=== PATIENT | female | born 1985 | race Caucasian/White ===

== ENCOUNTER → 2016-05-01 | Outpatient (CLI) | payer OTHER ==
[~2016-05-01] MED LIST: MOTR200T44 PO; TYLE167L PO; TYLE325T5 PO
== END ==
LOC: M LAB 17:18
PROVIDERS: ATTEND Physician Assistant
DX: R53.83 Other fatigue (principal)

== ENCOUNTER 2016-05-03 11:50 | Emergency (ER) | payer OTHER ==
--- NOTE | 2016-05-03 12:19 | EDDOCDS ---
Physician Documentation [facility] Name: Cecilia Brennan Age: 30 yrs Sex: Female : 1985 Arrival Date: 05/03/2016 Time: 11:50 Bed Triage 2 Private MD: NO PRIMARY PHYSICIAN, . Disposition: 05/03/16 12:10 Discharged to Home/Self Care. Impression: Acute nasopharyngitis [common cold]. - Condition is Stable. - Discharge Instructions: Cool Mist Vaporizers, Upper Respiratory Infection, Adult, Ilhw-xg-Byjn, Viral Infections, Cvbp-Uz-Yqmp. - Medication Reconciliation, Local Pharmacy Hours form. - [facility] up: [facility]; When: Call to arrange an appointment; Reason: Further diagnostic work-up, Recheck today's complaints, Continuance of care, To establish care. - Problem is new. - Symptoms are unchanged. Historical: - Allergies: No known drug Allergies; - Home Meds: 1. none - PMHx: none; - PSHx: Tubal ligation; - Social history: Smoking status: Patient uses tobacco products, light tobacco smoker. No barriers to communication noted, The patient speaks fluent Saudi Arabian. - Family history: Not pertinent. - : The pt / caregiver states he / she is not on anticoagulants. Home medication list is obtained from the patient. - Exposure Risk Screening:: None identified. 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 2 in. (157.48 cm); Pain 4/10; 11:52 Body Mass Index 27.44 (68.04 kg, 157.48 cm) elp MDM: 12:17 Financial registration complete. Signatures: Alejandrina Salmon RN RN Dieter Magana, Theodore Jaimes Davian Cleveland PA PA btw Fuller, Desiree,RN RN dsf MTDD
--- NOTE | 2016-05-03 12:20 | EDDOCDS ---
Nurse's Notes [facility] Name: Cecilia Brennan Age: 30 yrs Sex: Female : 1985 Arrival Date: 05/03/2016 Time: 11:50 Bed Triage 2 Private MD: NO PRIMARY PHYSICIAN, . Diagnosis: Acute nasopharyngitis [common cold] Presentation: 05/03 11:54 Presenting complaint: Patient states: sore throat and ears feeling plugged x 3 days. [facility] Risk factors: Stridor is not present. Drooling is not present. Shortness of breath is not present. Cellulitis is not present. Adult Sepsis Screening: The patient does not have new or worsening altered mentation. Patient's respiratory rate is less than 22. Systolic blood pressure is greater than 100. Patient has a qSOFA score of 0- Negative Sepsis Screen. Suicide/Homicide risk assessment- the patient denies having any suicidal and/or homicidal ideations and does not present with any other emotional, behavioral or mental health complaints. Status: Patient is not a media services director or dependent. Transition of care: patient was not received from another setting of care. 11:54 Acuity: RAMEZ Level 4 [facility] 11:54 Method Of Arrival: Walkin/Carried/Asstd [facility] Triage Assessment: 11:56 General: Appears in no apparent distress, Behavior is appropriate for age. Pain: [facility] Location: throat Pain currently is 4 out of 10 on a pain scale. Pt Declines HIV testing. Neurological: Level of Consciousness is awake, alert, Oriented to person, place, time. EENT: Reports pain when swallowing Pain is 4 out of 10 on a pain scale. Respiratory: Airway is patent Respiratory effort is even, unlabored, Respiratory pattern is regular, symmetrical. Derm: Skin is pink, warm & dry. 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 none - PMHx: none; - PSHx: Tubal ligation; - Social history: Smoking status: Patient uses tobacco products, light tobacco smoker. No barriers to communication noted, The patient speaks fluent Danish. - Family history: Not pertinent. - : The pt / caregiver states he / she is not on anticoagulants. Home medication list is obtained from the patient. - Exposure Risk Screening:: None identified. Screenin:18 Screening information is obtained from the patient. Fall risk: No risks identified. dsf Assistance ADL's: requires no assistance with activities of daily living. Abuse/DV Screen: The patient / caregiver reports he/she is: not in a situation that causes fear, pain or injury. Nutritional screening: No deficits noted. Advance Directives: Currently, there is no health care proxy. home support is adequate. Assessment: 12:18 General: Appears in no apparent distress, Behavior is appropriate for age, cooperative. dsf Awake, alert, oriented. Skin warm and dry. Moves all extremities. Respirations unlabored. The patient / caregiver is instructed regarding the plan of care and ED course. Physical assessment to be completed by PA/ED. Vital Signs: 11:52 BP 121 / 67; Pulse 88; Resp 18; Temp 99.1; Pulse Ox 99% ; Weight 68.04 kg; Height 5 ft. elp 2 in. (157.48 cm); Pain 4/10; 11:52 Body Mass Index 27.44 (68.04 kg, 157.48 cm) el Vitals: 11:52 Log In Time: May 03, 2016 at 11:50. [facility] Course: 11:51 Patient visited by Sruthi Ddod PCA. elp 11:51 Patient moved to Waiting el 11:52 NO PRIMARY PHYSICIAN, . is Private Physician. elp 11:53 Patient visited by Sruthi Dodd PCA. elp 11:53 Patient moved to Pre RCE elp 11:55 Triage Initiated [facility] 11:58 Patient moved to Triage 2 [facility] 11:59 Davian Cleveland PA [facility]. btw 11:59 Stephanie Ulrich MD is Attending Physician. btw 11:59 Patient visited by Davian Cleveland PA. btw 12:10 [facility] is Referral Physician. btw 12:18 Patient has correct armband on for positive identification. dsf 12:18 No IV's were initiated during this patient's visit. No procedures done that require dsf assistance. Order Results: There are currently no results for this order. Outcome: 12:10 Discharge ordered by Provider. btw 12:18 The following High Risk Discharge criteria are identified: None. Discharged to home dsf ambulatory. Condition: stable. Discharge instructions given to patient, Instructed on discharge instructions, follow up and referral plans. Demonstrated understanding of instructions, Pt was receptive of discharge instructions/ teaching. No special radiology studies were completed. 12:18 Discharge Assessment: Patient awake, alert and oriented x 3. No cognitive and/or dsf functional deficits noted. Patient verbalized understanding of disposition instructions. patient administered narcotics - no. The following High Risk Discharge criteria are identified: None. Discharged to home ambulatory. Property sent home with patient. 12:19 Patient left the ED. dsf Signatures: Alejandrina Salmon, RN RN Davian Wyatt PA PA btw Fuller, DesireeRN RN dsf Sruthi Dodd, OSEI CONFIGURATION SPECIALIST elp MTDD
--- NOTE | 2016-05-05 13:20 | EDDOCDS ---
Physician Documentation [facility] Name: Cecilia Brennan Age: 30 yrs Sex: Female : 1985 Arrival Date: 05/03/2016 Time: 11:50 Bed Triage 2 Private MD: NO PRIMARY PHYSICIAN, . Disposition: 05/03/16 12:10 Discharged to Home/Self Care. Impression: Acute nasopharyngitis [common cold]. - Condition is Stable. - Discharge Instructions: Cool Mist Vaporizers, Upper Respiratory Infection, Adult, Tbpi-yb-Hqlj, Viral Infections, Lgpi-Mu-Todk. - Medication Reconciliation, Local Pharmacy Hours form. - Follow up: [facility]; When: Call to arrange an appointment; Reason: Further diagnostic work-up, Recheck today's complaints, Continuance of care, To establish care. - Problem is new. - Symptoms are unchanged. Historical: - Allergies: No known drug Allergies; - Home Meds: 1. none - PMHx: none; - PSHx: Tubal ligation; - Social history: Smoking status: Patient uses tobacco products, light tobacco smoker. No barriers to communication noted, The patient speaks fluent Emirati. - Family history: Not pertinent. - : The pt / caregiver states he / she is not on anticoagulants. Home medication list is obtained from the patient. - Exposure Risk Screening:: None identified. 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 2 in. (157.48 cm); Pain 4/10; 11:52 Body Mass Index 27.44 (68.04 kg, 157.48 cm) elp MDM: 12:17 Financial registration complete. lg 12:54 [facility] Payment Agreement was scanned into [employer] and attached to record. lg 14:52 T-Sheet-- Draft Copy was scanned into [employer] and attached to record. gb Signatures: Alejandrina Salmon RN RN [facility] Lisette Clark, Reg Reg gb Dieter Cain, Reg Reg lg Davian Cleveland PA PA btw Fuller, DesireeRN RN dsf The chart was reviewed and I authenticate all verbal orders and agree with the evaluation and treatment provided.Attachments: 12:54 [facility] Payment Agreement lg 14:52 T-Sheet-- Draft Copy gb Chart Complete MTDD
--- NOTE | 2016-05-05 13:20 | EDDOCDS ---
Nurse's Notes [facility] Name: Cecilia Brennan Age: 30 yrs Sex: Female : 1985 Arrival Date: 05/03/2016 Time: 11:50 Bed Triage 2 Private MD: NO PRIMARY PHYSICIAN, . Diagnosis: Acute nasopharyngitis [common cold] Presentation: 05/03 11:54 Presenting complaint: Patient states: sore throat and ears feeling plugged x 3 days. [facility] Risk factors: Stridor is not present. Drooling is not present. Shortness of breath is not present. Cellulitis is not present. Adult Sepsis Screening: The patient does not have new or worsening altered mentation. Patient's respiratory rate is less than 22. Systolic blood pressure is greater than 100. Patient has a qSOFA score of 0- Negative Sepsis Screen. Suicide/Homicide risk assessment- the patient denies having any suicidal and/or homicidal ideations and does not present with any other emotional, behavioral or mental health complaints. 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 Transition of care: patient was not received from another setting of care. 11:54 Acuity: RAMEZ Level 4 [facility] 11:54 Method Of Arrival: Walkin/Carried/Asstd [facility] Triage Assessment: 11:56 General: Appears in no apparent distress, Behavior is appropriate for age. Pain: [facility] Location: throat Pain currently is 4 out of 10 on a pain scale. Pt Declines HIV testing. Neurological: Level of Consciousness is awake, alert, Oriented to person, place, time. EENT: Reports pain when swallowing Pain is 4 out of 10 on a pain scale. Respiratory: Airway is patent Respiratory effort is even, unlabored, Respiratory pattern is regular, symmetrical. Derm: Skin is pink, warm & dry. 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 none - PMHx: none; - PSHx: Tubal ligation; - Social history: Smoking status: Patient uses tobacco products, light tobacco smoker. No barriers to communication noted, The patient speaks fluent Estonian. - Family history: Not pertinent. - : The pt / caregiver states he / she is not on anticoagulants. Home medication list is obtained from the patient. - Exposure Risk Screening:: None identified. Screenin:18 Screening information is obtained from the patient. Fall risk: No risks identified. dsf Assistance ADL's: requires no assistance with activities of daily living. Abuse/DV Screen: The patient / caregiver reports he/she is: not in a situation that causes fear, pain or injury. Nutritional screening: No deficits noted. Advance Directives: Currently, there is no health care proxy. home support is adequate. Assessment: 12:18 General: Appears in no apparent distress, Behavior is appropriate for age, cooperative. dsf Awake, alert, oriented. Skin warm and dry. Moves all extremities. Respirations unlabored. The patient / caregiver is instructed regarding the plan of care and ED course. Physical assessment to be completed by PA/ED. Vital Signs: 11:52 BP 121 / 67; Pulse 88; Resp 18; Temp 99.1; Pulse Ox 99% ; Weight 68.04 kg; Height 5 ft. elp 2 in. (157.48 cm); Pain 4/10; 11:52 Body Mass Index 27.44 (68.04 kg, 157.48 cm) [facility] Vitals: 11:52 Log In Time: May 03, 2016 at 11:50. [facility] ED Course: 11:51 Patient visited by Sruthi Dodd PCA. elp 11:51 Patient moved to Waiting el 11:52 NO PRIMARY PHYSICIAN, . is Private Physician. elp 11:53 Patient visited by Sruthi Dodd PCA. elp 11:53 Patient moved to Pre RCE elp 11:55 Triage Initiated [facility] 11:58 Patient moved to Triage 2 [facility] 11:59 Davian Cleveland PA is PSYCHIATRICP. btw 11:59 Stephanie Ulrich MD is Attending Physician. btw 11:59 Patient visited by Davian Cleveland PA. btw 12:10 [facility] is Referral Physician. btw 12:18 Patient has correct armband on for positive identification. dsf 12:18 No IV's were initiated during this patient's visit. No procedures done that require dsf assistance. 12:54 Patient name changed from Cecilia\S\Johnny\S\Mika\S\ to Cecilia\S\L\S\Mika. EDMS 12:54 [facility] Payment Agreement was scanned into [employer] and attached to record. lg 14:52 T-Sheet-- Draft Copy was scanned into [employer] and attached to record. gb Order Results: There are currently no results for this order. Outcome: 12:10 Discharge ordered by Provider. btw 12:18 The following High Risk Discharge criteria are identified: None. Discharged to home dsf ambulatory. Condition: stable. Discharge instructions given to patient, Instructed on discharge instructions, follow up and referral plans. Demonstrated understanding of instructions, Pt was receptive of discharge instructions/ teaching. No special radiology studies were completed. 12:18 Discharge Assessment: Patient awake, alert and oriented x 3. No cognitive and/or dsf functional deficits noted. Patient verbalized understanding of disposition instructions. patient administered narcotics - no. The following High Risk Discharge criteria are identified: None. Discharged to home ambulatory. Property sent home with patient. 12:19 Patient left the ED. dsf Signatures: Dispatcher [employer] EDMS Alejandrina Salmon, RN RN [facility] Lisette Clark, Reg Reg gb Dieter Cain, Reg Reg lg Davian Cleveland PA PA btw Madelyn Villa,RN RN dsf Sruthi Dodd, OSEI POACHER OPERATOR elp Chart Complete JEYSON
--- NOTE | 2016-05-05 13:20 | EDDOCDS ---
Physician Documentation [facility] Name: eCcilia Brennan Age: 30 yrs Sex: Female : 1985 Arrival Date: 05/03/2016 Time: 11:50 Bed Triage 2 Private MD: NO PRIMARY PHYSICIAN, . Disposition: 05/03/16 12:10 Discharged to Home/Self Care. Impression: Acute nasopharyngitis [common cold]. - Condition is Stable. - Discharge Instructions: Cool Mist Vaporizers, Upper Respiratory Infection, Adult, Qcoi-bk-Ealy, Viral Infections, Dsff-Ot-Ldny. - Medication Reconciliation, Local Pharmacy Hours form. - Follow up: [facility]; When: Call to arrange an appointment; Reason: Further diagnostic work-up, Recheck today's complaints, Continuance of care, To establish care. - Problem is new. - Symptoms are unchanged. Historical: - Allergies: No known drug Allergies; - Home Meds: 1. none - PMHx: none; - PSHx: Tubal ligation; - Social history: Smoking status: Patient uses tobacco products, light tobacco smoker. No barriers to communication noted, The patient speaks fluent Beninese. - Family history: Not pertinent. - : The pt / caregiver states he / she is not on anticoagulants. Home medication list is obtained from the patient. - Exposure Risk Screening:: None identified. 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 2 in. (157.48 cm); Pain 4/10; 11:52 Body Mass Index 27.44 (68.04 kg, 157.48 cm) elp MDM: 12:17 Financial registration complete. lg 12:54 [facility] [place] Agreement was scanned into [employer] and attached to record. lg 14:52 T-Sheet-- Draft Copy was scanned into [employer] and attached to record. gb Signatures: Alejandrina Salmon RN RN [facility] Lisette Clark, Reg Reg gb Dieter Cain, Reg Reg lg Davian Cleveland PA PA btw Fuller, DesireeRN RN dsf The chart was reviewed and I authenticate all verbal orders and agree with the evaluation and treatment provided.Attachments: 12:54 [facility] [place] Agreement lg 14:52 T-Sheet-- Draft Copy gb Chart Complete MTDD
== END 2016-05-03 12:19 | disposition home or self-care (01) ==
LOC: M ED 11:50
DX: J06.9 Acute upper respiratory infection, unspecified (principal); F17.210 Nicotine dependence, cigarettes, uncomplicated

== ENCOUNTER 2016-12-28 17:56 | Emergency (ER) | payer OTHER ==
[~2016-12-28] VITALS: Ht 157.5 cm; Wt 63.6 kg
[2016-12-28] MEDS ORDERED: KETOROLAC 30 MG/ML VIAL (J1885) IV ONE (21:15)
[2016-12-28 21:57] LABS: BASO % 0.7 % (0.0-1.0); EOS # 0.2 K/mm3 (0.0-0.50); EOS % 2.4 % (0.0-3.0); LARGE UNSTAINED CELL # 0.1 K/mm3 (0.0-0.4); LARGE UNSTAINED CELL % 1.4 % (0.0-4.0); LYMPH # 1.3 K/mm3 (1.5-4.5); LYMPH % 21.1 % (24.0-44.0); MEAN CORPUSCULAR VOLUME 88.6 fl (80.0-96.0); MONO # 0.3 K/mm3 (0.0-0.8); MONO % 4.6 % (0.0-5.0); NEUTROPHILS # 4.5 K/mm3 (1.8-7.7); NEUTROPHILS % 69.9 % (36.0-66.0); PLATELET COUNT, AUTOMATED 339 k/mm3 (150-450); RED CELL DISTRIBUTION WIDTH 12.2 % (11.5-14.5); WHITE BLOOD COUNT 6.4 K/mm3 (4.0-10.0)
[2016-12-28] MEDS ORDERED: GASTROGRAFIN SOLUTION 30ML (Q9963) PO ONE ×2 (22:00→22:25)
[2016-12-28 22:07] LABS: ALBUMIN 4.4 GM/DL (3.2-5.2); ALBUMIN/GLOBULIN RATIO 1.52 (1.00-1.93); ALKALINE PHOSPHATASE 62 U/L (45-117); ALT/SGPT 16 U/L (12-78); AMYLASE 52 U/L (25-115); ANION GAP 4 MEQ/L (8-16); AST/SGOT 9 U/L (15-37); BILIRUBIN,DIRECT 0.1 MG/DL (0.0-0.2); BILIRUBIN,TOTAL 0.5 MG/DL (0.2-1.0); BLOOD UREA NITROGEN 8 MG/DL (7-18); CALCIUM LEVEL 9.8 MG/DL (8.5-10.1); CARBON DIOXIDE LEVEL 27 MEQ/L (21-32); CHLORIDE LEVEL 108 MEQ/L (98-107); GLOMERULAR FILTRATION RATE > 60.0 (>60); GLUCOSE, FASTING 89 MG/DL (70-105); POTASSIUM SERUM 4.1 MEQ/L (3.5-5.1); SODIUM LEVEL 139 MEQ/L (136-145); TOTAL PROTEIN 7.3 GM/DL (6.4-8.2)
[2016-12-28 22:08] LABS: YEAST LIKE CELL URINE AUTO SMALL
[2016-12-28] MEDS ORDERED: ISOVUE-370 76% 100ML VIAL (Q9967) As Ordered ONE (23:50)
[2016-12-29 00:49] VITALS: BP 115/61
--- NOTE | 2016-12-29 00:50 | REPUSA ---
CLINICAL HISTORY: Abdominal pain. TECHNIQUE: Multiple axial, sagittal and coronal CT images were obtained through the abdomen and pelvi s after administration of oral and intravenous contrast material. COMMENTS: Comparison is made to the prior exam on 09/08/2014. Mild diffuse thickening of the wall of the terminal ileum. The liver is of uniform attenuation without mass or defect. There is no intra or extrahepatic biliary ductal dilatation. The spleen is normal. The gallbladder is within normal limits. The pancreas is of normal contour and attenuation characteristics. There is no evidence of adrenal mass. Both kidneys demonstrate prompt and equal nephrograms. The kidneys are normal in size, shape and conf iguration. There is no evidence of renal or ureteral mass. No renal or ureteral calculi are identifie d. There is no hydroureter or hydronephrosis. No evidence for appendicitis. No evidence for small or large bowel obstruction. There is no evidence of abdominal ascites or lympha denopathy. There is no evidence of intrinsic or extrinsic bladder mass. There is no pelvic ascites or lymphadeno chapin. Images of the lung bases show no evidence of pleural or parenchymal mass. There are no pleural effusi ons. The bony structures are free of lytic or blastic lesions. Multilevel degenerative changes are seen in volving the thoracolumbar spine. Scattered calcifications are seen involving the aorta and major bran ches compatible with atherosclerosis. IMPRESSION: Mild diffuse thickening of the wall of the terminal ileum. Underdistention versus mild ileitis. This was not present on prior exam. Thank you for your kind referral of this patient.
[2016-12-29] MEDS ORDERED: CIPROFLOXACIN 500 MG TAB PO ONE (01:00)
[2016-12-29] MEDS ORDERED: CIPR-249 PO (01:03)
[2016-12-29] MEDS ORDERED: NORCOTAB PO (01:03)
[2016-12-29] MEDS ORDERED: ZOFR4TAB3 PO (01:03)
[2016-12-29] MEDS ORDERED: FLAG500T PO (01:03)
== END 2016-12-29 01:21 | disposition home or self-care (01) ==
LOC: M ED 17:56
DX: N39.0 Urinary tract infection, site not specified (principal); K52.9 Noninfective gastroenteritis and colitis, unspecified; R10.30 Lower abdominal pain, unspecified; F17.200 Nicotine dependence, unspecified, uncomplicated
CPT/HCPCS: 74177; 80048; 80076; 81001; 81025; 82150; 83605; 83690; 85025; 86140; 96374; 99284; J1885; Q9963; Q9967

== ENCOUNTER → 2017-04-11 | Outpatient (REF) | payer OTHER ==
[2017-04-11 18:08] LABS: CHLAMYDIA DNA AMPLIFICATION NEGATIVE (NEGATIVE); GC DNA AMPLIFICATION NEGATIVE (NEGATIVE)
== END ==
LOC: M LAB REF 16:29
DX: R30.0 Dysuria (principal)

== ENCOUNTER → 2017-05-01 | Outpatient (CLI) | payer OTHER ==
[2017-05-01 20:44] LABS: BASO # 0.1 10^3/uL (0.0-0.2); BASO % 0.9 % (0.0-1.0); EOS # 0.2 10^3/uL (0.0-0.50); EOS % 3.1 % (0.0-3.0); HEMATOCRIT 45.6 % (36.0-47.0); HEMOGLOBIN 15.1 g/dl (12.0-16.0); IMMATURE GRANULOCYTE % 0.3 % (0-0); LYMPH # 1.7 10^3/uL (1.5-4.5); LYMPH % 26.1 % (24.0-44.0); MEAN CORPUSCULAR HEMOGLOBIN 29.9 pg (27.0-33.0); MEAN CORPUSCULAR HGB CONC 33.1 g/dl (32.0-36.5); MEAN CORPUSCULAR VOLUME 90.3 fl (80.0-96.0); MONO # 0.6 10^3/uL (0.0-0.8); MONO % 8.6 % (0.0-5.0); PLATELET COUNT, AUTOMATED 349 10^3/uL (150-450); RED BLOOD COUNT 5.05 10^6/uL (4.00-5.40); RED CELL DISTRIBUTION WIDTH 12.1 % (11.5-14.5); WHITE BLOOD COUNT 6.5 10^3/uL (4.0-10.0)
[2017-05-01 21:02] LABS: ALBUMIN 4.4 GM/DL (3.2-5.2); ALBUMIN/GLOBULIN RATIO 1.52 (1.00-1.93); ALKALINE PHOSPHATASE 68 U/L (45-117); ALT/SGPT 19 U/L (12-78); AMYLASE 54 U/L (25-115); ANION GAP 4 MEQ/L (8-16); AST/SGOT 10 U/L (7-37); BILIRUBIN,TOTAL 0.3 MG/DL (0.2-1.0); BLOOD UREA NITROGEN 8 MG/DL (7-18); CALCIUM LEVEL 9.8 MG/DL (8.5-10.1); CARBON DIOXIDE LEVEL 30 MEQ/L (21-32); CHLORIDE LEVEL 106 MEQ/L (98-107); CREATININE FOR GFR 0.66 MG/DL (0.55-1.02); GLOMERULAR FILTRATION RATE > 60.0 (>60); GLUCOSE, FASTING 76 MG/DL (70-100); LIPASE 154 U/L (73-393); POTASSIUM SERUM 4.9 MEQ/L (3.5-5.1); SODIUM LEVEL 140 MEQ/L (136-145); TOTAL PROTEIN 7.3 GM/DL (6.4-8.2)
== END ==
LOC: M WUC 16:14
DX: R10.84 Generalized abdominal pain (principal); N39.0 Urinary tract infection, site not specified
CPT/HCPCS: 82150

== ENCOUNTER → 2017-05-04 | Outpatient (REF) | payer OTHER ==
[2017-05-04 19:40] LABS: INFLUENZA A AMPLIFICATION NEGATIVE (NEGATIVE); INFLUENZA B AMPLIFICATION NEGATIVE (NEGATIVE); RSV AMPLIFICATION NEGATIVE (NEGATIVE)
== END ==
LOC: M LAB REF 19:03
DX: J11.1 Influenza due to unidentified influenza virus with other respiratory manifestations (principal)
CPT/HCPCS: 87631

== ENCOUNTER 2017-07-29 07:51 | Emergency (ER) | payer OTHER ==
[2017-07-29] MEDS: NS 1,000 ML IV (08:24)
[2017-07-29] MEDS: ONDANSETRON 4MG/2ML VIAL (J2405) IV (08:24)
[2017-07-29] MEDS: KETOROLAC 30 MG/ML VIAL (J1885) IV (08:24)
[2017-07-29] MEDS: MORPHINE 4 MG/ML 1ML VIAL/SYRINGE (J2270) IV ×2 (08:30→09:30)
[2017-07-29 08:31] LABS: BASO # 0.1 10^3/uL (0.0-0.2); BASO % 1.3 % (0.0-1.0); EOS # 0.2 10^3/uL (0.0-0.50); EOS % 3.9 % (0.0-3.0); HEMATOCRIT 41.6 % (36.0-47.0); HEMOGLOBIN 14.4 g/dl (12.0-15.5); IMMATURE GRANULOCYTE % 0.5 % (0-3.0); LYMPH # 2.6 10^3/uL (1.5-4.5); LYMPH % 41.2 % (24.0-44.0); MEAN CORPUSCULAR HEMOGLOBIN 30.3 pg (27.0-33.0); MEAN CORPUSCULAR HGB CONC 34.6 g/dl (32.0-36.5); MEAN CORPUSCULAR VOLUME 87.4 fl (80.0-96.0); MONO # 0.6 10^3/uL (0.0-0.8); MONO % 9.5 % (0.0-5.0); NEUTROPHILS # 2.7 10^3/uL (1.8-7.7); NEUTROPHILS % 43.6 % (36.0-66.0); PLATELET COUNT, AUTOMATED 321 10^3/uL (150-450); RED BLOOD COUNT 4.76 10^6/uL (4.00-5.40); RED CELL DISTRIBUTION WIDTH 12.2 % (11.5-14.5); WHITE BLOOD COUNT 6.2 10^3/uL (4.0-10.0)
[2017-07-29 08:33] LABS: CONTROL LINE UCG INT CTR LINE PRESENT; URINE PREG TEST NEGATIVE (NEGATIVE)
[2017-07-29 08:47] LABS: INR 0.95; PROTHROMBIN TIME 12.7 SECONDS (12.4-14.5)
[2017-07-29 08:52] LABS: BILIRUBIN, URINE MANUAL NEGATIVE (NEGATIVE); BLOOD URINE MANUAL RFX POSITIVE (NEGATIVE); GLUCOSE, URINE (UA) MANUAL NEGATIVE (NEGATIVE); KETONE, URINE MANUAL NEGATIVE (NEGATIVE); MICROSCOPIC INDICATED? RFX YES (NO); NITRITE, URINE MANUAL RFX NEGATIVE (NEGATIVE); PROTEIN, URINE MANUAL REFLEX 1+ mg/dL (NEGATIVE); RBC, URINE 30-40 /hpf (0-3); UROBILINOGEN, URINE MANUAL NORMAL (NORMAL)
[2017-07-29 08:53] LABS: BACTERIA, URINE SMALL AMOUNT; CALCIUM OXALATE CRYSTALS,URINE MOD AMOUNT /hpf; HYALINE CAST, URINE NONE SEEN /lpf (0-1); MICROSCOPIC EXAM UNSPUN; SQUAMOUS EPITHELIAL CELL URINE SMALL AMOUNT /hpf (SMALL AMT)
[2017-07-29] MEDS ORDERED: ISOVUE-370 76% 100ML VIAL (Q9967) As Ordered (09:31)
[2017-07-29 09:34] LABS: ALBUMIN 4.1 GM/DL (3.2-5.2); ALBUMIN/GLOBULIN RATIO 1.24 (1.00-1.93); ALKALINE PHOSPHATASE 62 U/L (45-117); ALT/SGPT 20 U/L (12-78); AMYLASE 47 U/L (25-115); ANION GAP 6 MEQ/L (8-16); AST/SGOT 11 U/L (7-37); BILIRUBIN,DIRECT < 0.1 MG/DL (0.0-0.2); BILIRUBIN,TOTAL 0.4 MG/DL (0.2-1.0); BLOOD UREA NITROGEN 11 MG/DL (7-18); CALCIUM LEVEL 9.6 MG/DL (8.5-10.1); CARBON DIOXIDE LEVEL 24 MEQ/L (21-32); CHLORIDE LEVEL 113 MEQ/L (98-107); CREATININE FOR GFR 0.83 MG/DL (0.55-1.30); GLOMERULAR FILTRATION RATE > 60.0 (>60); GLUCOSE, FASTING 123 MG/DL (70-100); LIPASE 143 U/L (73-393); POTASSIUM SERUM 3.9 MEQ/L (3.5-5.1); SODIUM LEVEL 143 MEQ/L (136-145); TOTAL PROTEIN 7.4 GM/DL (6.4-8.2)
[2017-07-29] MEDS ORDERED: HYDROmorphone 2 MG TAB PO (09:45)
[2017-07-29] MEDS ORDERED: HYDROmorphone HCL 1 MG/ML SYRINGE (J1170) As Ordered (09:49)
[2017-07-29] MEDS: HYDROmorphone HCL 1 MG/ML SYRINGE (J1170) IV ×2 (09:58→10:00)
== END 2017-07-29 10:30 | disposition home or self-care (01) ==
LOC: M ED 07:51
DX: N39.0 Urinary tract infection, site not specified (principal); N20.0 Calculus of kidney; N13.30 Unspecified hydronephrosis; F17.200 Nicotine dependence, unspecified, uncomplicated
CPT/HCPCS: J2270

== ENCOUNTER 2017-08-02 18:56 | Emergency (ER) | payer OTHER ==
[2017-08-02] MEDS: NS 1,000 ML IV (20:45)
[2017-08-02] MEDS ORDERED: diphenhydrAMINE INJ 50MG/ML VIAL (J1200) IV (21:00)
[2017-08-02] MEDS: KETOROLAC 30 MG/ML VIAL (J1885) IV (21:07)
[2017-08-02] MEDS: ONDANSETRON 4MG/2ML VIAL (J2405) IV (21:07)
[2017-08-02 21:16] LABS: BASO # 0.1 10^3/uL (0.0-0.2); EOS # 0.2 10^3/uL (0.0-0.50); EOS % 3.1 % (0.0-3.0); HEMATOCRIT 41.7 % (36.0-47.0); HEMOGLOBIN 14.5 g/dl (12.0-15.5); IMMATURE GRANULOCYTE % 0.3 % (0-3.0); LYMPH # 1.5 10^3/uL (1.5-4.5); LYMPH % 20.9 % (24.0-44.0); MEAN CORPUSCULAR HEMOGLOBIN 30.5 pg (27.0-33.0); MEAN CORPUSCULAR HGB CONC 34.8 g/dl (32.0-36.5); MEAN CORPUSCULAR VOLUME 87.8 fl (80.0-96.0); MONO # 0.5 10^3/uL (0.0-0.8); MONO % 7.1 % (0.0-5.0); NEUTROPHILS % 67.6 % (36.0-66.0); PLATELET COUNT, AUTOMATED 322 10^3/uL (150-450); RED BLOOD COUNT 4.75 10^6/uL (4.00-5.40); RED CELL DISTRIBUTION WIDTH 12.1 % (11.5-14.5); WHITE BLOOD COUNT 7.3 10^3/uL (4.0-10.0)
[2017-08-02 21:22] LABS: AMORPHOUS SEDIMENT SMALL (NEGATIVE); APPEARANCE, URINE HAZY (CLEAR); BACTERIA, URINE AUTO NEGATIVE (NEGATIVE); BILIRUBIN, URINE AUTO NEGATIVE (NEGATIVE); BLOOD, URINE BLOOD NEGATIVE (NEGATIVE); COLOR, URINE YELLOW (YELLOW); GLUCOSE, URINE (UA) AUTO NEGATIVE (NEGATIVE); KETONE, URINE AUTO NEGATIVE (NEGATIVE); LEUKOCYTE ESTERASE, URINE AUTO 2+ (NEGATIVE); MUCUS, URINE SMALL (NEGATIVE); NITRITE, URINE AUTO NEGATIVE (NEGATIVE); PROTEIN, URINE AUTO NEGATIVE (NEGATIVE); RBC, URINE AUTO 4 /HPF (0-3); SPECIFIC GRAVITY URINE AUTO 1.006 (1.002-1.035); SQUAMOUS EPITHELIAL CELL UR AU 8 /HPF (0-6); UROBILINOGEN, URINE AUTO 0.2 mg/dL (0.0-2.0); WBC, URINE AUTO 6 /HPF (0-3)
[2017-08-02 21:35] LABS: ALBUMIN 4.4 GM/DL (3.2-5.2); ALBUMIN/GLOBULIN RATIO 1.33 (1.00-1.93); ALKALINE PHOSPHATASE 58 U/L (45-117); ALT/SGPT 14 U/L (12-78); ANION GAP 4 MEQ/L (8-16); AST/SGOT 10 U/L (7-37); BILIRUBIN,DIRECT < 0.1 MG/DL (0.0-0.2); BILIRUBIN,TOTAL 0.4 MG/DL (0.2-1.0); BLOOD UREA NITROGEN 8 MG/DL (7-18); CALCIUM LEVEL 9.6 MG/DL (8.5-10.1); CARBON DIOXIDE LEVEL 27 MEQ/L (21-32); CHLORIDE LEVEL 108 MEQ/L (98-107); CREATININE FOR GFR 0.91 MG/DL (0.55-1.30); GLOMERULAR FILTRATION RATE > 60.0 (>60); GLUCOSE, FASTING 81 MG/DL (70-100); POTASSIUM SERUM 3.9 MEQ/L (3.5-5.1); SODIUM LEVEL 139 MEQ/L (136-145); TOTAL PROTEIN 7.7 GM/DL (6.4-8.2)
[2017-08-02 21:41] LABS: LACTIC ACID SEPSIS PROTOCOL 0.7 MMOL/L (0.4-2.0)
[2017-08-02] MEDS: CIPROFLOXACIN 500 MG TAB PO (22:46)
== END 2017-08-02 22:48 | disposition home or self-care (01) ==
LOC: M ED 18:56
DX: N39.0 Urinary tract infection, site not specified (principal); N21.0 Calculus in bladder; N13.30 Unspecified hydronephrosis; F17.210 Nicotine dependence, cigarettes, uncomplicated; Z79.2 Long term (current) use of antibiotics; Z87.442 Personal history of urinary calculi
CPT/HCPCS: J2405

== ENCOUNTER → 2018-02-07 | Outpatient (REF) | payer OTHER | LOC: M LAB REF 12:14 | DX: J01.90 Acute sinusitis, unspecified (principal); R30.0 Dysuria ==

== ENCOUNTER → 2018-07-31 | Outpatient (REF) | payer OTHER ==
[~2018-07-31] MED LIST changes: +ACET160S3 PO; +AMOX500C PO; +BACT800T5 PO; +CIPR-249 PO; +FLAG500T PO; +FLOM0.4C39 PO; +HYDR-3715 PO; +MAGICMW SSP; +PERC5TAB12 PO; +ZOFR4TAB14 PO
== END ==
LOC: M WUC 09:06
PROVIDERS: ATTEND Physician Assistant
DX: J02.9 Acute pharyngitis, unspecified (principal)

== ENCOUNTER 2018-08-04 11:14 | Emergency (ER) | payer OTHER ==
[~2018-08-04] VITALS: Ht 157.5 cm; Wt 66.4 kg
[~2018-08-04 11:14] MED LIST changes: -ACET160S3 PO; -AMOX500C PO; -MAGICMW SSP
[2018-08-04] MEDS ORDERED: ACET160S3 PO (11:21)
[2018-08-04] MEDS ORDERED: LIDOCAINE 1% SDV 5 ML VIAL DILUENT ONE (12:00)
[2018-08-04] MEDS ORDERED: cefTRIAXone SOD 1 GM VIAL (J0696) IM ONE (12:00)
[2018-08-04] MEDS ORDERED: MAGICMW SSP (12:29)
[2018-08-04] MEDS ORDERED: AMOX500C PO (12:29)
[2018-08-04 12:40] VITALS: BP 117/68
[2018-08-04] MEDS ORDERED: IBUPROFEN 800 MG TAB PO ONE (12:45)
== END 2018-08-04 12:43 | disposition home or self-care (01) ==
LOC: M ED 11:14
DX: J02.0 Streptococcal pharyngitis (principal); F17.210 Nicotine dependence, cigarettes, uncomplicated; Z87.442 Personal history of urinary calculi
CPT/HCPCS: 87880; 96372; 99284; J0696

== ENCOUNTER 2019-01-13 13:44 | Emergency (ER) | payer OTHER ==
[~2019-01-13] VITALS: Ht 157.5 cm; Wt 63.6 kg
[~2019-01-13 13:44] MED LIST changes: +ACET160S3 PO; +AMOX500C PO; +MAGICMW SSP
[2019-01-13 13:45] VITALS: BP 132/74
[2019-01-13 14:21] LABS: BASO # 0.1 10^3/uL (0.0-0.2); BASO % 0.9 % (0.0-1.0); EOS # 0.3 10^3/uL (0.0-0.5); EOS % 3.2 % (0.0-3.0); HEMATOCRIT 46.2 % (36.0-47.0); HEMOGLOBIN 15.5 g/dl (12.0-15.5); LYMPH # 1.8 10^3/uL (1.5-5.0); LYMPH % 19.5 % (24.0-44.0); MEAN CORPUSCULAR HEMOGLOBIN 30.6 pg (27.0-33.0); MEAN CORPUSCULAR HGB CONC 33.5 g/dl (32.0-36.5); MEAN CORPUSCULAR VOLUME 91.1 fl (80.0-96.0); MONO # 0.5 10^3/uL (0.0-0.8); MONO % 5.1 % (0.0-5.0); NEUTROPHILS # 6.5 10^3/uL (1.5-8.5); PLATELET COUNT, AUTOMATED 367 10^3/uL (150-450); RED BLOOD COUNT 5.07 10^6/uL (4.00-5.40); WHITE BLOOD COUNT 9.2 10^3/uL (4.0-10.0)
[2019-01-13 14:54] LABS: AMORPHOUS SEDIMENT MODERATE (NEGATIVE); APPEARANCE, URINE TURBID (CLEAR); BACTERIA, URINE AUTO 1+ (NEGATIVE); BILIRUBIN, URINE AUTO NEGATIVE (NEGATIVE); BLOOD, URINE BLOOD NEGATIVE (NEGATIVE); COLOR, URINE YELLOW (YELLOW); GLUCOSE, URINE (UA) AUTO NEGATIVE (NEGATIVE); KETONE, URINE AUTO NEGATIVE (NEGATIVE); LEUKOCYTE ESTERASE, URINE AUTO 3+ (NEGATIVE); NITRITE, URINE AUTO NEGATIVE (NEGATIVE); PROTEIN, URINE AUTO NEGATIVE (NEGATIVE); RBC, URINE AUTO 0 /HPF (0-3); SQUAMOUS EPITHELIAL CELL UR AU 16 /HPF (0-6); UROBILINOGEN, URINE AUTO 0.2 mg/dL (0.0-2.0); WBC, URINE AUTO 83 /HPF (0-3)
[2019-01-13 15:03] LABS: ALBUMIN 4.2 GM/DL (3.2-5.2); ALT/SGPT 27 U/L (12-78); BILIRUBIN,DIRECT 0.1 MG/DL (0.0-0.2); BILIRUBIN,TOTAL 0.4 MG/DL (0.2-1.0); BLOOD UREA NITROGEN 7 MG/DL (7-18); CALCIUM LEVEL 10.4 MG/DL (8.5-10.1); CARBON DIOXIDE LEVEL 29 MEQ/L (21-32); CHLORIDE LEVEL 105 MEQ/L (98-107); CREATININE FOR GFR 0.79 MG/DL (0.55-1.30); GLOMERULAR FILTRATION RATE > 60.0 (>60); GLUCOSE, FASTING 107 MG/DL (70-100); POTASSIUM SERUM 4.2 MEQ/L (3.5-5.1); SODIUM LEVEL 140 MEQ/L (136-145); THYROID STIMULATING HORMONE 0.444 uIU/ML (0.358-3.740); TOTAL PROTEIN 7.3 GM/DL (6.4-8.2)
[2019-01-13] MEDS ORDERED: PRED20TA PO (15:07)
[2019-01-13] MEDS ORDERED: CLAR10CA3 PO (15:07)
== END 2019-01-13 15:12 | disposition home or self-care (01) ==
LOC: M ED 13:44
DX: L29.9 Pruritus, unspecified (principal); F17.200 Nicotine dependence, unspecified, uncomplicated

== ENCOUNTER 2019-10-04 11:33 | Emergency (ER) | payer OTHER ==
[~2019-10-04] VITALS: Ht 157.5 cm; Wt 63.4 kg
[~2019-10-04 11:33] MED LIST changes: +CLAR10CA3 PO; +PRED20TA PO
[2019-10-04 12:38] LABS: BASO # 0.1 10^3/uL (0.0-0.2); BASO % 0.8 % (0.0-1.0); EOS # 0.1 10^3/uL (0.0-0.5); EOS % 0.9 % (0.0-3.0); HEMATOCRIT 46.9 % (36.0-47.0); HEMOGLOBIN 15.7 g/dl (12.0-15.5); LYMPH % 12.9 % (24.0-44.0); MEAN CORPUSCULAR HEMOGLOBIN 29.9 pg (27.0-33.0); MEAN CORPUSCULAR HGB CONC 33.5 g/dl (32.0-36.5); MEAN CORPUSCULAR VOLUME 89.3 fl (80.0-96.0); MONO # 0.5 10^3/uL (0.0-0.8); MONO % 6.6 % (0.0-5.0); NEUTROPHILS # 5.8 10^3/uL (1.5-8.5); NEUTROPHILS % 78.4 % (36.0-66.0); PLATELET COUNT, AUTOMATED 358 10^3/uL (150-450); RED BLOOD COUNT 5.25 10^6/uL (4.00-5.40); WHITE BLOOD COUNT 7.4 10^3/uL (4.0-10.0)
[2019-10-04 13:29] LABS: ALBUMIN 4.4 GM/DL (3.2-5.2); BILIRUBIN,DIRECT 0.2 MG/DL (0.0-0.2); BILIRUBIN,TOTAL 0.6 MG/DL (0.2-1.0); TOTAL PROTEIN 7.6 GM/DL (6.4-8.2)
[2019-10-04 14:14] LABS: CHLAMYDIA DNA AMPLIFICATION NEGATIVE (NEGATIVE); GC DNA AMPLIFICATION NEGATIVE (NEGATIVE)
--- NOTE | 2019-10-04 14:21 | REP ---
Clinical: Menorrhagia. Technique: Transabdominal pelvic ultrasound followed by transvaginal examination for better evaluation of the endometrium and adnexa with color Doppler evaluation of the ovaries. Findings: Bladder is empty Normal anteverted uterus measures 7.5 x 4.7 x 4.9 cm . The endometrial complex measures 11.0 mm thickness. No discrete uterine or endometrial abnormalities are appreciated. Bilateral ovaries are normal in appearance and vascularity without evidence for torsion. Right ovary measures 3.5 x 2.1 x 1.7 cm and includes 1.6 x 1.8 x 2.4 cm dominant follicle ; R I = 0.41 . Left ovary measures 2.9 x 2.0 x 2.9 cm ; R I = 0.49 . Trace pelvic free fluid. No adnexal mass lesion. . Impression: 1. Normal pelvic ultrasound. Dominant follicle in the right ovary. Electronically Signed by Rao Guerra MD 10/04/2019 02:13 P
[2019-10-04] MEDS ORDERED: CIPR-249 PO (14:26)
[2019-10-04] MEDS ORDERED: ONDA4TAB6 PO (14:26)
[2019-10-04 14:31] VITALS: BP 121/67
== END 2019-10-04 14:41 | disposition home or self-care (01) ==
LOC: M ED 11:33
DX: N39.0 Urinary tract infection, site not specified (principal); N83.201 Unspecified ovarian cyst, right side; F17.200 Nicotine dependence, unspecified, uncomplicated; Z87.442 Personal history of urinary calculi; Z88.8 Allergy status to other drugs, medicaments and biological substances

== ENCOUNTER 2019-10-05 22:02 | Emergency (ER) | payer OTHER ==
[~2019-10-05] VITALS: Ht 157.5 cm; Wt 63.6 kg
[~2019-10-05 22:02] MED LIST changes: +ONDA4TAB6 PO
[2019-10-05] MEDS ORDERED: METOCLOPRAMIDE INJ 10MG/2ML VIAL (J2765 PER 1) IV ONE (23:15)
[2019-10-05] MEDS ORDERED: NS 1,000 ML IV ONE (23:15)
[2019-10-05 23:22] LABS: BASO # 0.1 10^3/uL (0.0-0.2); BASO % 0.8 % (0.0-1.0); EOS # 0.1 10^3/uL (0.0-0.5); EOS % 0.9 % (0.0-3.0); HEMATOCRIT 43.4 % (36.0-47.0); HEMOGLOBIN 14.8 g/dl (12.0-15.5); LYMPH # 1.4 10^3/uL (1.5-5.0); LYMPH % 17.7 % (24.0-44.0); MEAN CORPUSCULAR HEMOGLOBIN 30.5 pg (27.0-33.0); MEAN CORPUSCULAR HGB CONC 34.1 g/dl (32.0-36.5); MEAN CORPUSCULAR VOLUME 89.5 fl (80.0-96.0); MONO # 0.6 10^3/uL (0.0-0.8); MONO % 7.5 % (0.0-5.0); NEUTROPHILS # 5.6 10^3/uL (1.5-8.5); NEUTROPHILS % 72.6 % (36.0-66.0); PLATELET COUNT, AUTOMATED 332 10^3/uL (150-450); RED BLOOD COUNT 4.85 10^6/uL (4.00-5.40); WHITE BLOOD COUNT 7.8 10^3/uL (4.0-10.0)
[2019-10-05] MEDS: KETOROLAC 30 MG/ML 1ML VIAL IV ONE ×2 (23:32→23:35)
--- NOTE | 2019-10-05 23:43 | REPVR ---
PROCEDURE INFORMATION: Exam: CT Abdomen And Pelvis Without Contrast Exam date and time: 10/05/2019 11:03 PM Age: 34 years old Clinical indication: Abdominal pain; Flank; Right; Additional info: R flank pain TECHNIQUE: Imaging protocol: Computed tomography of the abdomen and pelvis without contrast. Axial, coronal and sagittal reformatted images were created and reviewed. Radiation optimization: All CT scans at this facility use at least one of these dose optimization techniques: automated exposure control; mA and/or kV adjustment per patient size (includes targeted exams where dose is matched to clinical indication); or iterative reconstruction. COMPARISON: CT ABD PELVIS W/O CONTRAST 08/02/2017 9:21 PM FINDINGS: Liver: Unremarkable. Gallbladder and bile ducts: No radiodense gallstones. No biliary ductal dilatation. Pancreas: Unremarkable. Spleen: Unremarkable. Adrenals: Unremarkable. Kidneys and ureters: Nonobstructing left renal calculi. No hydronephrosis. Stomach and bowel: No bowel wall thickening. No obstruction. No pneumatosis. Appendix: Intraluminal appendicoliths without CT evidence of acute appendicitis. Intraperitoneal space: Trace nonspecific free pelvic fluid, likely physiologic. No organized fluid collection. No free air. Vasculature: Unremarkable. No aneurysm. Lymph nodes: No pathologically enlarged lymph nodes. Bladder: Unremarkable. Reproductive: Unremarkable. Bones/joints: No acute osseous abnormality. Mild degenerative changes. Soft tissues: Unremarkable. IMPRESSION: 1. Limited noncontrast examination without CT evidence of acute intra-abdominal or pelvic pathology. 2. Additional findings, as above. Electronically signed by: Sabas Quiroga On 10/05/2019 23:42:45 PM
[2019-10-05 23:51] LABS: ALBUMIN 4.3 GM/DL (3.2-5.2); BILIRUBIN,DIRECT 0.1 MG/DL (0.0-0.2); BILIRUBIN,TOTAL 0.5 MG/DL (0.2-1.0); TOTAL PROTEIN 7.4 GM/DL (6.4-8.2)
[2019-10-06] MEDS ORDERED: REGL10TA6 PO (01:01)
[2019-10-06 01:12] VITALS: BP 120/61
== END 2019-10-06 01:22 | disposition home or self-care (01) ==
LOC: M ED 22:02
DX: R10.9 Unspecified abdominal pain (principal); R11.2 Nausea with vomiting, unspecified; F17.200 Nicotine dependence, unspecified, uncomplicated; Z79.899 Other long term (current) drug therapy
CPT/HCPCS: 74176; 80047; 80076; 81001; 83690; 85025; 87086; 96361; 96374; 99284; J2765

== ENCOUNTER 2019-10-14 15:16 | Emergency (ER) | payer OTHER ==
[~2019-10-14] VITALS: Ht 157.5 cm; Wt 65.7 kg
[~2019-10-14 15:16] MED LIST changes: +REGL10TA6 PO
[2019-10-14 16:08] LABS: BASO % 0.9 % (0.0-1.0); EOS % 2.1 % (0.0-3.0); HEMATOCRIT 44.1 % (36.0-47.0); HEMOGLOBIN 15.3 g/dl (12.0-15.5); LYMPH # 1.2 10^3/uL (1.5-5.0); LYMPH % 20.6 % (24.0-44.0); MEAN CORPUSCULAR HEMOGLOBIN 30.4 pg (27.0-33.0); MEAN CORPUSCULAR HGB CONC 34.7 g/dl (32.0-36.5); MEAN CORPUSCULAR VOLUME 87.7 fl (80.0-96.0); MONO % 8.9 % (0.0-5.0); NEUTROPHILS # 3.8 10^3/uL (1.5-8.5); PLATELET COUNT, AUTOMATED 332 10^3/uL (150-450); RED BLOOD COUNT 5.03 10^6/uL (4.00-5.40); WHITE BLOOD COUNT 5.7 10^3/uL (4.0-10.0)
[2019-10-14 16:09] LABS: BASO # 0.1 10^3/uL (0.0-0.2); EOS # 0.1 10^3/uL (0.0-0.5); MONO # 0.5 10^3/uL (0.0-0.8)
[2019-10-14 16:31] LABS: ALBUMIN 4.4 GM/DL (3.2-5.2); BILIRUBIN,DIRECT 0.1 MG/DL (0.0-0.2); BILIRUBIN,TOTAL 0.4 MG/DL (0.2-1.0); TOTAL PROTEIN 7.4 GM/DL (6.4-8.2)
--- NOTE | 2019-10-14 18:00 | REPVR ---
PROCEDURE INFORMATION: Exam: US Abdomen, Limited; Right Upper Quadrant Exam date and time: 10/14/2019 5:32 PM Age: 34 years old Clinical indication: Abdominal pain; Epigastric; Additional info: Ruq pain TECHNIQUE: Imaging protocol: US abdomen. Real time ultrasound with image documentation. Limited exam focused on the right upper quadrant. COMPARISON: CT ABD PELVIS W/O CONTRAST 10/05/2019 11:18 PM FINDINGS: Liver: Liver is homogeneous in echotexture, with no focal lesion. Gallbladder: Gallbladder is anechoic. No stone, mural edema or pericholecystic fluid. Gallbladder wall measures less than 2 mm in thickness Common bile duct: Common bile duct measures 4 mm in diameter. Pancreas: Pancreas is sonographically normal. Right kidney: Right kidney measures 10.1 cm in long axis. Right kidney appears normal. Intraperitoneal space: No free fluid. IMPRESSION: Unremarkable sonogram of the right upper quadrant. Electronically signed by: Chris Griffith On 10/14/2019 18:00:04 PM
[2019-10-14] MEDS ORDERED: CARA1TAB6 PO (18:28)
[2019-10-14] MEDS ORDERED: PROT1TAB2 PO (18:28)
[2019-10-14 18:39] VITALS: BP 122/70
== END 2019-10-14 18:54 | disposition home or self-care (01) ==
LOC: M ED 15:16
DX: R10.11 Right upper quadrant pain (principal); F17.200 Nicotine dependence, unspecified, uncomplicated; Z79.899 Other long term (current) drug therapy; Z87.442 Personal history of urinary calculi; Z88.8 Allergy status to other drugs, medicaments and biological substances

== ENCOUNTER → 2020-01-19 | Outpatient (CLI) | payer OTHER ==
[~2020-01-19] MED LIST changes: +CARA1TAB6 PO; +PROT1TAB2 PO
--- NOTE | 2020-01-19 10:41 | REPVR ---
PROCEDURE INFORMATION: Exam: CT Maxillofacial Without Contrast, Sinus Exam date and time: 01/19/2020 10:23 AM Age: 34 years old Clinical indication: Sinusitis; Chronic; Additional info: Chronic maxillary sinusitis TECHNIQUE: Imaging protocol: CT Maxillofacial without contrast. Focus on the sinuses. Radiation optimization: All CT scans at this facility use at least one of these dose optimization techniques: automated exposure control; mA and/or kV adjustment per patient size (includes targeted exams where dose is matched to clinical indication); or iterative reconstruction. COMPARISON: No relevant prior studies available. FINDINGS: Sinuses: Localized left maxillary sinus mucoperiosteal disease. No sinus fluid. Nasal cavity/Septum: Midline nasal septum. Orbital cavity: Unremarkable appearance of the globes, optic nerves, and extraocular muscles. Bones/joints: No acute osseous pathology in the visualized facial bones. Soft tissues: Unremarkable soft tissues. Dental: Beam hardening artifact is identified in association with dental amalgam and earrings. Brain: Nonspecific lobulated 13 mm calcification in the left frontal lobe. IMPRESSION: 1. Localized left maxillary sinus mucoperiosteal disease. 2. Nonspecific lobulated 13 mm calcification in the left frontal lobe. Electronically signed by: Thanh Hawkins On 01/19/2020 10:41:12 AM
== END ==
LOC: M RAD 10:15
PROVIDERS: ATTEND Otolaryngology
DX: J32.0 Chronic maxillary sinusitis (principal); D33.2 Benign neoplasm of brain, unspecified

== ENCOUNTER 2020-06-10 06:49 | Emergency (ER) | payer OTHER ==
[~2020-06-10] VITALS: Ht 157.5 cm; Wt 65.3 kg
[2020-06-10] MEDS ORDERED: ONDANSETRON 4MG/2ML VIAL IV ONE (07:30)
[2020-06-10] MEDS ORDERED: ACETAMINOPHEN 500 MG TAB PO ONE (07:30)
[2020-06-10 08:01] LABS: BASO # 0.1 10^3/uL (0.0-0.2); BASO % 0.6 % (0.0-1.0); EOS # 0.2 10^3/uL (0.0-0.5); EOS % 2.2 % (0.0-3.0); HEMATOCRIT 44.9 % (36.0-47.0); HEMOGLOBIN 15.1 g/dl (12.0-15.5); LYMPH % 11.4 % (24.0-44.0); MEAN CORPUSCULAR HGB CONC 33.6 g/dl (32.0-36.5); MEAN CORPUSCULAR VOLUME 89.1 fl (80.0-96.0); MONO # 0.6 10^3/uL (0.0-0.8); MONO % 6.7 % (2.0-8.0); NEUTROPHILS # 6.6 10^3/uL (1.5-8.5); NEUTROPHILS % 78.6 % (36.0-66.0); PLATELET COUNT, AUTOMATED 328 10^3/uL (150-450); RED BLOOD COUNT 5.04 10^6/uL (4.00-5.40); WHITE BLOOD COUNT 8.4 10^3/uL (4.0-10.0)
[2020-06-10 08:25] LABS: INR 0.92; PROTHROMBIN TIME 12.6 SECONDS (12.5-14.3)
[2020-06-10 08:26] LABS: ALBUMIN 4.3 GM/DL (3.2-5.2); ALT/SGPT 15 U/L (12-78); BILIRUBIN,DIRECT < 0.1 MG/DL (0.0-0.2); BILIRUBIN,TOTAL 0.3 MG/DL (0.2-1.0); BLOOD UREA NITROGEN 11 MG/DL (7-18); CALCIUM LEVEL 10.1 MG/DL (8.5-10.1); CARBON DIOXIDE LEVEL 27 MEQ/L (21-32); CHLORIDE LEVEL 107 MEQ/L (98-107); CREATININE FOR GFR 0.84 MG/DL (0.55-1.30); FREE T4 1.01 NG/DL (0.76-1.46); GLOMERULAR FILTRATION RATE > 60.0 (>60); GLUCOSE, FASTING 88 MG/DL (70-100); HCG, SERUM QUANTITATIVE < 1.0 MIU/ML; PARTIAL THROMBOPLASTIN TIME 30.6 SECONDS (24.2-38.5); POTASSIUM SERUM 3.7 MEQ/L (3.5-5.1); SODIUM LEVEL 140 MEQ/L (136-145); THYROID STIMULATING HORMONE 0.604 uIU/ML (0.358-3.740); TOTAL PROTEIN 7.2 GM/DL (6.4-8.2)
--- NOTE | 2020-06-10 09:03 | REP ---
INDICATION: pelvic pain, heavy vaginal bleeding COMPARISON: 10/04/2019 TECHNIQUE: Transabdominal pelvic ultrasound followed by transvaginal examination for better evaluation of the endometrium and adnexa with color Doppler evaluation of the ovaries. FINDINGS: Bladder is collapsed. Normal anteverted uterus measures 8.4 x 4.3 x 4.9 cm. The endometrial complex measures 7.8 mm thickness. Few small incidental chronic stable punctate echogenic foci at the transitional zone likely chronic calcification. Bilateral ovaries are normal in appearance and vascularity without evidence for torsion. Right ovary measures 3.3 x 1.9 x 2.9 cm; R I = 0.51. Left ovary measures 2.8 x 2.4 x 2.1 cm; R I = 0.53. Trace pelvic free fluid likely physiologic. IMPRESSION: Essentially normal pelvic ultrasound. <Electronically signed by Rao Guerra > 06/10/20 0900
[2020-06-10] MEDS ORDERED: FLAG500T PO (11:39)
[2020-06-10 11:45] VITALS: BP 124/72
== END 2020-06-10 11:55 | disposition home or self-care (01) ==
LOC: M ED 06:49
DX: N93.8 Other specified abnormal uterine and vaginal bleeding (principal); N94.6 Dysmenorrhea, unspecified; N94.10 Unspecified dyspareunia; R10.2 Pelvic and perineal pain; R11.2 Nausea with vomiting, unspecified; Z87.440 Personal history of urinary (tract) infections; F17.200 Nicotine dependence, unspecified, uncomplicated; Z88.1 Allergy status to other antibiotic agents
CPT/HCPCS: 76830; 76856; 80048; 80076; 81001; 84439; 84443; 84702; 85025; 85610; 85730; 87086; 87210; 87490; 87590; 87661; 93976; 96374; 99284; J2405

== ENCOUNTER 2020-06-16 15:38 | Emergency (ER) | payer OTHER ==
[~2020-06-16] VITALS: Ht 157.5 cm; Wt 65.1 kg
[2020-06-16 17:20] LABS: BASO # 0.1 10^3/uL (0.0-0.2); BASO % 1.1 % (0.0-1.0); EOS # 0.3 10^3/uL (0.0-0.5); EOS % 3.9 % (0.0-3.0); HEMATOCRIT 46.4 % (36.0-47.0); HEMOGLOBIN 15.7 g/dl (12.0-15.5); LYMPH # 1.9 10^3/uL (1.5-5.0); LYMPH % 23.4 % (24.0-44.0); MEAN CORPUSCULAR HEMOGLOBIN 30.2 pg (27.0-33.0); MEAN CORPUSCULAR HGB CONC 33.8 g/dl (32.0-36.5); MEAN CORPUSCULAR VOLUME 89.2 fl (80.0-96.0); MONO # 0.6 10^3/uL (0.0-0.8); MONO % 7.9 % (2.0-8.0); NEUTROPHILS # 5.1 10^3/uL (1.5-8.5); NEUTROPHILS % 63.2 % (36.0-66.0); PLATELET COUNT, AUTOMATED 364 10^3/uL (150-450); WHITE BLOOD COUNT 8.1 10^3/uL (4.0-10.0)
[2020-06-16] MEDS ORDERED: ONDANSETRON 4MG/2ML VIAL IV ONE (17:30)
[2020-06-16] MEDS ORDERED: NS 1,000 ML IV ONE (17:30)
[2020-06-16] MEDS ORDERED: KETOROLAC 30 MG/ML 1ML VIAL IV ONE (17:30)
[2020-06-16 17:36] LABS: INR 0.89; PROTHROMBIN TIME 12.2 SECONDS (12.5-14.3)
[2020-06-16 17:37] LABS: PARTIAL THROMBOPLASTIN TIME 27.8 SECONDS (24.2-38.5)
[2020-06-16 17:52] LABS: ALBUMIN 4.4 GM/DL (3.2-5.2); ALT/SGPT 31 U/L (12-78); BILIRUBIN,TOTAL 0.2 MG/DL (0.2-1.0); BLOOD UREA NITROGEN 6 MG/DL (7-18); CARBON DIOXIDE LEVEL 28 MEQ/L (21-32); CHLORIDE LEVEL 110 MEQ/L (98-107); CREATININE FOR GFR 0.71 MG/DL (0.55-1.30); GLOMERULAR FILTRATION RATE > 60.0 (>60); GLUCOSE, FASTING 80 MG/DL (70-100); HCG, SERUM QUALITATIVE NEGATIVE (NEGATIVE); LIPASE 97 U/L (73-393); POTASSIUM SERUM 4.1 MEQ/L (3.5-5.1); SODIUM LEVEL 141 MEQ/L (136-145); TOTAL PROTEIN 7.4 GM/DL (6.4-8.2)
[2020-06-16] MEDS ORDERED: ISOVUE-370 76% 100ML VIAL As Ordered ONE (18:17)
--- NOTE | 2020-06-16 19:58 | REPVR ---
PROCEDURE INFORMATION: Exam: CT Abdomen And Pelvis With Contrast Exam date and time: 06/16/2020 6:35 PM Age: 34 years old Clinical indication: Abdominal pain; Additional info: Lower abd pain TECHNIQUE: Imaging protocol: Computed tomography of the abdomen and pelvis with contrast. Radiation optimization: All CT scans at this facility use at least one of these dose optimization techniques: automated exposure control; mA and/or kV adjustment per patient size (includes targeted exams where dose is matched to clinical indication); or iterative reconstruction. Contrast material: ISOVUE 370; Contrast volume: 100 ml; Contrast route: INTRAVENOUS (IV); COMPARISON: CT ABD PELVIS W/O CONTRAST 10/05/2019 11:18 PM FINDINGS: Liver: The right lobe of the liver is enlarged and has the appearance of a normal variant Hussain's lobe. Gallbladder and bile ducts: Normal. No calcified stones. No ductal dilation. Pancreas: Normal. No ductal dilation. Spleen: Normal. No splenomegaly. Adrenal glands: Normal. No mass. Kidneys and ureters: Normal. No hydronephrosis. Stomach and bowel: Unremarkable. No obstruction. No mucosal thickening. Appendix: No evidence of appendicitis. Intraperitoneal space: No free intraperitoneal air or free fluid. Vasculature: Unremarkable. No abdominal aortic aneurysm. Lymph nodes: Unremarkable. No enlarged lymph nodes. Urinary bladder: Unremarkable as visualized. Reproductive: There is a septated probable ovarian cyst present in the anterior left uterine adnexa measuring approximately 3.3 x 1.7 cm transversely on image 110 of series 201 and image 3 0.4 cm craniocaudally on image 81 of series 203. The questionable cyst is a new development since the previous CT abdomen and pelvis study from 10/05/2019. Bones/joints: Unremarkable. No acute fracture. Soft tissues: Unremarkable. IMPRESSION: 1. There is a septated probable ovarian cyst present in the anterior left uterine adnexa measuring approximately 3.3 x 1.7 cm transversely on image 110 of series 201 and image 3 0.4 cm craniocaudally on image 81 of series 203. The questionable cyst is a new development since the previous CT abdomen and pelvis study from 10/05/2019. Further evaluation with ultrasound is recommended to characterize the lesion. Reference: Lorenzo et al. Management of Incidental Adnexal Findings on CT and MRI: A White Paper of the ACR Incidental Findings Committee, J Am Yvonne Radiol. 2019;17(2):248-254. 2. The right lobe of the liver is enlarged and has the appearance of a normal variant Hussain's lobe. 3. No free intraperitoneal air or free fluid. Electronically signed by: Wiliam Almanzar On 06/16/2020 19:58:39 PM
--- NOTE | 2020-06-16 21:27 | REPVR ---
PROCEDURE INFORMATION: Exam: US Nonobstetric Pelvis; Complete Exam date and time: 06/16/2020 8:39 PM Age: 34 years old Clinical indication: Pelvic pain; Additional info: ? Left ov cyst on CT TECHNIQUE: Imaging protocol: Transabdominal pelvic nonobstetric ultrasound. Complete exam. Real time ultrasound with image documentation. COMPARISON: US PELVIC NON-OB COMPLETE 06/10/2020 8:25 AM FINDINGS: Uterus/cervix: The uterus measures 8.6 x 4.9 x 7 cm. The endometrial bilayer is 1.6 cm. Right adnexa: The right ovary measures 2.1 x 3.1 x 2 cm. Arterial and venous blood flow are detected. Left adnexa: The left ovary measures 4.3 x 2.7 x 2.4 cm. There is a dominant follicle which measures 2.1 x 1.9 x 1.7 cm. Arterial and venous blood flow are detected. Intraperitoneal space: No intraperitoneal fluid. Urinary bladder: Normal. IMPRESSION: Normal pelvic ultrasound. There is no left ovarian cyst. There is a probable dominant follicle measuring 2.1 cm. Arterial and venous blood flow is detected in both ovaries. Electronically signed by: Shanel Joshi On 06/16/2020 21:28:31 PM
[2020-06-16 21:35] VITALS: BP 113/73
[2020-06-16] MEDS ORDERED: BACT800T5 PO (21:35)
[2020-06-16] MEDS ORDERED: BACTRIM 160MG/800MG DS TAB PO ONE (21:40)
== END 2020-06-16 21:49 | disposition home or self-care (01) ==
LOC: M ED 15:38
DX: N39.0 Urinary tract infection, site not specified (principal); R16.0 Hepatomegaly, not elsewhere classified; R42 Dizziness and giddiness; R51.9 Headache, unspecified; R11.2 Nausea with vomiting, unspecified; Z87.442 Personal history of urinary calculi; Z88.1 Allergy status to other antibiotic agents
CPT/HCPCS: 74177; 76856; 80053; 81001; 83690; 84702; 84703; 85025; 85610; 85730; 93976; 96361; 96374; 96375; 99284; J1885; J2405; Q9967

== ENCOUNTER → 2020-06-20 | Outpatient (REF) | payer OTHER | LOC: M LAB REF 17:00 | PROVIDERS: ATTEND Physician Assistant Medical | DX: R10.30 Lower abdominal pain, unspecified (principal) ==

== ENCOUNTER → 2020-09-28 | Outpatient (REF) | payer OTHER | LOC: M SFHCWAGY 13:47 | PROVIDERS: ATTEND Nurse Practitioner Women's Health | DX: Z12.4 Encounter for screening for malignant neoplasm of cervix (principal); Z01.419 Encounter for gynecological examination (general) (routine) without abnormal findings ==

== ENCOUNTER → 2020-11-21 | Outpatient (REF) | payer OTHER | LOC: M SFHCWAGY 12:58 | PROVIDERS: ATTEND Nurse Practitioner Women's Health | DX: R87.610 Atypical squamous cells of undetermined significance on cytologic smear of cervix (ASC-US) (principal) ==

== ENCOUNTER → 2020-11-26 | Outpatient (REF) | payer OTHER ==
[2020-11-26 21:53] LABS: GC DNA AMPLIFICATION NEGATIVE (NEGATIVE)
== END ==
LOC: M WUC 19:44
PROVIDERS: ATTEND Physician Assistant
DX: R30.0 Dysuria (principal)

== ENCOUNTER → 2021-01-03 | Outpatient (REF) | payer OTHER ==
[~2021-01-03] MED LIST changes: +KETO10TAB PO; +NITR100C2
[2021-01-03 19:10] LABS: APPEARANCE, URINE CLOUDY (CLEAR); BACTERIA, URINE AUTO NEGATIVE (NEGATIVE); BILIRUBIN, URINE AUTO NEGATIVE (NEGATIVE); BLOOD, URINE BLOOD 3+ (NEGATIVE); CALCIUM OXALATE CRYSTALS SMALL; COLOR, URINE YELLOW (YELLOW); GLUCOSE, URINE (UA) AUTO 1+ mg/dL (NEGATIVE); KETONE, URINE AUTO TRACE mg/dL (NEGATIVE); LEUKOCYTE ESTERASE, URINE AUTO TRACE (NEGATIVE); MUCUS, URINE MODERATE (NEGATIVE); NITRITE, URINE AUTO NEGATIVE (NEGATIVE); PROTEIN, URINE AUTO 1+ mg/dL (NEGATIVE); RBC, URINE AUTO TNTC /HPF (0-3); SPECIFIC GRAVITY URINE AUTO 1.019 (1.002-1.035); SQUAMOUS EPITHELIAL CELL UR AU 53 /HPF (0-6); UROBILINOGEN, URINE AUTO 0.2 mg/dL (0.0-2.0); WBC, URINE AUTO 7 /HPF (0-3)
== END ==
LOC: M SFHCWAGY 17:30
PROVIDERS: ATTEND Obstetrics & Gynecology
DX: R30.0 Dysuria (principal)

== ENCOUNTER 2021-01-08 06:51 | Emergency (ER) | payer OTHER ==
[~2021-01-08] VITALS: Ht 157.5 cm; Wt 62.9 kg
[~2021-01-08 06:51] MED LIST changes: -KETO10TAB PO; -NITR100C2
[2021-01-08] MEDS ORDERED: NITR100C2 (07:19)
[2021-01-08] MEDS ORDERED: NS 1,000 ML IV ONE (07:20)
[2021-01-08] MEDS ORDERED: KETOROLAC 30 MG/ML 1ML VIAL IV ONE (07:45)
[2021-01-08 07:46] LABS: BASO # 0.1 10^3/uL (0.0-0.2); BASO % 1.4 % (0.0-1.0); EOS # 0.2 10^3/uL (0.0-0.5); EOS % 3.4 % (0.0-3.0); HEMATOCRIT 44.6 % (36.0-47.0); HEMOGLOBIN 15.3 g/dl (12.0-15.5); LYMPH # 1.2 10^3/uL (1.5-5.0); MEAN CORPUSCULAR HEMOGLOBIN 30.5 pg (27.0-33.0); MEAN CORPUSCULAR HGB CONC 34.3 g/dl (32.0-36.5); MONO # 0.5 10^3/uL (0.0-0.8); MONO % 8.4 % (2.0-8.0); NEUTROPHILS # 4.3 10^3/uL (1.5-8.5); PLATELET COUNT, AUTOMATED 334 10^3/uL (150-450); RED BLOOD COUNT 5.01 10^6/uL (4.00-5.40); WHITE BLOOD COUNT 6.4 10^3/uL (4.0-10.0)
[2021-01-08 08:14] LABS: ALBUMIN 3.8 GM/DL (3.2-5.2); ALT/SGPT 26 U/L (12-78); BILIRUBIN,DIRECT < 0.1 MG/DL (0.0-0.2); BILIRUBIN,TOTAL 0.3 MG/DL (0.2-1.0); LIPASE 98 U/L (73-393); TOTAL PROTEIN 6.8 GM/DL (6.4-8.2)
--- NOTE | 2021-01-08 08:33 | REP ---
INDICATION: l flank and LLQ pain COMPARISON: June 16, 2020. TECHNIQUE: Helical scanning is acquired and 3 mm axial images were reformatted. Coronal and sagittal MPR images were generated and reviewed. FINDINGS: Digital preliminary computer repairer radiograph is unremarkable. The lung bases are clear on axial CT images. The liver and the spleen are normal in size homogeneous in texture. Normal adrenal glands are observed. There is a small calcified gallstone in the dependent portion of the gallbladder. No abnormality is noted in the pancreas. No retroperitoneal mass or adenopathy is seen. There is mild left-sided hydronephrosis and hydroureter. The dilated ureter can be traced into the pelvis where it contains what appear to be 3 linearly aligned small ureteral stones measuring 3 mm in greatest diameter. There is Vilma ureteral edema. No bladder calculus is seen. The urinary bladder is largely empty. There is a similar size 2-3 mm calculus in the lower pole of the left kidney. A tiny calcific density is seen at mid pole level in the left kidney.a no right-sided hydronephrosis or right-sided calculus is seen. No uterine or ovarian abnormality is appreciated. A normal appendix is seen in the right central abdomen. IMPRESSION: Multiple small 2-3 mm distal ureteral calculi on the left with mild hydronephrosis. These are located several cm above the ureterovesical junction. <Electronically signed by Dillon Florez > 01/08/21 2165
[2021-01-08] MEDS ORDERED: cefTRIAXone SOD 1 GM in D5W MINI-BAG PLUS 50 ML IV ONE (08:55)
[2021-01-08] MEDS ORDERED: KETO10TAB PO (09:07)
[2021-01-08] MEDS ORDERED: FLOM0.4C39 PO (09:07)
[2021-01-08 09:58] VITALS: BP 115/64
== END 2021-01-08 10:17 | disposition home or self-care (01) ==
LOC: M ED 06:51
DX: N30.01 Acute cystitis with hematuria (principal); N13.2 Hydronephrosis with renal and ureteral calculous obstruction; Z88.1 Allergy status to other antibiotic agents
CPT/HCPCS: 74176; 80047; 80076; 81001; 83690; 85025; 87086; 96361; 96365; 96375; 99284; J0696; J1885

== ENCOUNTER → 2021-01-13 | Outpatient (REF) | payer OTHER ==
[~2021-01-13] MED LIST changes: +KETO10TAB PO; +NITR100C2
== END ==
LOC: M SFHCWAGY 14:04
PROVIDERS: ATTEND Obstetrics & Gynecology
DX: D06.9 Carcinoma in situ of cervix, unspecified (principal)

== ENCOUNTER → 2021-09-09 | Outpatient (REF) | payer OTHER ==
[2021-09-09 17:32] LABS: APPEARANCE, URINE HAZY (CLEAR); BACTERIA, URINE AUTO NEGATIVE (NEGATIVE); BILIRUBIN, URINE AUTO NEGATIVE (NEGATIVE); BLOOD, URINE BLOOD NEGATIVE (NEGATIVE); COLOR, URINE YELLOW (YELLOW); GLUCOSE, URINE (UA) AUTO NEGATIVE (NEGATIVE); KETONE, URINE AUTO NEGATIVE (NEGATIVE); LEUKOCYTE ESTERASE, URINE AUTO NEGATIVE (NEGATIVE); MUCUS, URINE SMALL (NEGATIVE); NITRITE, URINE AUTO NEGATIVE (NEGATIVE); PROTEIN, URINE AUTO NEGATIVE (NEGATIVE); RBC, URINE AUTO 0 /HPF (0-3); SPECIFIC GRAVITY URINE AUTO 1.015 (1.002-1.035); SQUAMOUS EPITHELIAL CELL UR AU 11 /HPF (0-6); UROBILINOGEN, URINE AUTO 0.2 mg/dL (0.0-2.0); WBC, URINE AUTO 1 /HPF (0-3)
== END ==
LOC: M LAB REF 16:56
PROVIDERS: ATTEND Physician Assistant Medical
DX: N39.0 Urinary tract infection, site not specified (principal)

== ENCOUNTER → 2021-10-25 | Outpatient (CLI) | payer OTHER | LOC: M WUC 14:02 | PROVIDERS: ATTEND Physician Assistant | DX: S92.515A Nondisplaced fracture of proximal phalanx of left lesser toe(s), initial encounter for closed fracture (principal) ==

== ENCOUNTER → 2022-01-19 | Outpatient (REF) | payer OTHER | LOC: M PLALAB 11:57 | PROVIDERS: ATTEND Nurse Practitioner Family | DX: Z12.4 Encounter for screening for malignant neoplasm of cervix (principal) ==

== ENCOUNTER → 2022-04-11 | Outpatient (CLI) | payer OTHER ==
[2022-04-11 12:32] LABS: BASO # 0.1 10^3/uL (0.0-0.2); BASO % 1.6 % (0.0-1.0); EOS # 0.2 10^3/uL (0.0-0.5); EOS % 2.6 % (0.0-3.0); HEMATOCRIT 45.2 % (36.0-47.0); HEMOGLOBIN 14.7 g/dl (12.0-15.5); LYMPH # 1.3 10^3/uL (1.5-5.0); LYMPH % 22.4 % (24.0-44.0); MEAN CORPUSCULAR HEMOGLOBIN 29.9 pg (27.0-33.0); MEAN CORPUSCULAR HGB CONC 32.5 g/dl (32.0-36.5); MEAN CORPUSCULAR VOLUME 91.9 fl (80.0-96.0); MONO # 0.5 10^3/uL (0.0-0.8); MONO % 9.2 % (2.0-8.0); NEUTROPHILS # 3.7 10^3/uL (1.5-8.5); NEUTROPHILS % 63.7 % (36.0-66.0); PLATELET COUNT, AUTOMATED 324 10^3/uL (150-450); RED BLOOD COUNT 4.92 10^6/uL (4.00-5.40); WHITE BLOOD COUNT 5.8 10^3/uL (4.0-10.0)
[2022-04-11 12:54] LABS: BLOOD UREA NITROGEN 7 MG/DL (9-23); CALCIUM LEVEL 10.4 MG/DL (8.5-10.1); CARBON DIOXIDE LEVEL 26 MMOL/L (20-31); CHLORIDE LEVEL 106 MMOL/L (98-107); CREATININE FOR GFR 0.69 MG/DL (0.55-1.30); GLOMERULAR FILTRATION RATE > 60.0 (>60); GLUCOSE, FASTING 81 MG/DL (60-100); POTASSIUM SERUM 4.7 MMOL/L (3.5-5.1); SODIUM LEVEL 138 MMOL/L (136-145)
== END ==
LOC: M WUC 10:39
PROVIDERS: ATTEND Registered Nurse
DX: R10.30 Lower abdominal pain, unspecified (principal)

== ENCOUNTER 2022-04-12 11:26 | Emergency (ER) | payer OTHER ==
[~2022-04-12] VITALS: Ht 157.5 cm; Wt 68.8 kg
[2022-04-12 11:27] VITALS: BP 130/64
== END 2022-04-12 12:18 | disposition left against medical advice (07) ==
LOC: M ED 11:26
DX: Z53.21 Procedure and treatment not carried out due to patient leaving prior to being seen by health care provider (principal)

== ENCOUNTER → 2022-04-13 | Outpatient (CLI) | payer OTHER | LOC: M PLAIMG 08:42 | PROVIDERS: ATTEND Registered Nurse | DX: N20.0 Calculus of kidney (principal); R13.10 Dysphagia, unspecified ==

== ENCOUNTER → 2022-04-26 | Outpatient (REF) | payer OTHER ==
[2022-04-26 14:25] LABS: APPEARANCE, URINE MANUAL HAZY (CLEAR); COLOR, URINE MANUAL YELLOW (YELLOW)
[2022-04-26 14:26] LABS: BILIRUBIN, URINE MANUAL NEGATIVE (NEGATIVE); BLOOD URINE MANUAL POSITIVE (NEGATIVE); GLUCOSE, URINE (UA) MANUAL NEGATIVE (NEGATIVE); KETONE, URINE MANUAL NEGATIVE (NEGATIVE); LEUKOCYTE ESTERASE, URINE MAN TRACE (NEGATIVE); NITRITE, URINE MANUAL NEGATIVE (NEGATIVE); PROTEIN, URINE MANUAL NEGATIVE (NEGATIVE); SPECIFIC GRAVITY,URINE MANUAL 1.021 (1.002-1.035); UROBILINOGEN, URINE MANUAL NORMAL (NORMAL)
[2022-04-26 14:43] LABS: AMORPHOUS SEDIMENT, URINE SMALL AMOUNT (NEGATIVE); BACTERIA, URINE MOD AMOUNT; HYALINE CAST, URINE NONE SEEN /lpf (0-1); MUCUS, URINE LARGE AMOUNT (NEGATIVE); SQUAMOUS EPITHELIAL CELL URINE LARGE AMOUNT /hpf (SMALL AMT)
== END ==
LOC: M SMT 13:11
PROVIDERS: ATTEND Urology
DX: N20.0 Calculus of kidney (principal)

== ENCOUNTER → 2022-04-30 | Outpatient (CLI) | payer OTHER | LOC: M RAD 07:02 | PROVIDERS: ATTEND Urology | DX: N20.0 Calculus of kidney (principal) ==

== ENCOUNTER → 2022-07-06 | Outpatient (CLI) | payer OTHER | LOC: M LABSMTC 07:51 | PROVIDERS: ATTEND Anesthesiology | DX: Z01.818 Encounter for other preprocedural examination (principal); Z11.52 Encounter for screening for COVID-19 ==

== ENCOUNTER → 2022-07-11 | Day surgery (SDC) | payer OTHER ==
[~2022-07-11] VITALS: Ht 157.5 cm; Wt 64.0 kg
[~2022-07-11] MED LIST changes: +BUPIVACAINE HCL 0.25% 30ML VIAL As Ordered ONE; +DESFLURANE 240 ML INHALANT As Ordered ONE; +HYDROmorphone HCL 2MG/ML 1ML VIAL As Ordered ONE; +KETOROLAC 30 MG/ML 1ML VIAL IV SCH; +KETOROLAC 60MG 2ML VIAL As Ordered ONE; +LIDOCAINE 2% 100MG/5ML SDV (FOR ANES.) As Ordered ONE; +LR 1,000 ML IV SCH; +METOCLOPRAMIDE INJ 10MG/2ML VIAL As Ordered ONE; +METOCLOPRAMIDE INJ 10MG/2ML VIAL IV PRN; +MIDAZOLAM INJ 2MG/2ML VIAL As Ordered ONE; +ONDANSETRON 4MG 2ML VIAL IV PRN; +PERCOCET 5MG/325MG TAB PO PRN; +ROCURONIUM BROMIDE 50MG/5ML VIAL As Ordered ONE; +SUGAMMADEX SODIUM 500 MG/5 ML VIAL (BRIDION) As Ordered ONE; +ceFAZolin SOD 2 GM in IV 1 EA IV ONE; +ePHEDrine SULFATE 25 MG/5 ML(5MG/ML) SYRINGE As Ordered ONE; +fentaNYL 100 MCG/2 ML INJECTION IV PRN; +fentaNYL 250 MCG/5 ML INJECTION As Ordered ONE; +propofoL 200 MG/20 ML VIAL As Ordered ONE
[2022-07-11 11:50] LABS: HEMATOCRIT 46.1 % (36.0-47.0); HEMOGLOBIN 15.3 g/dl (12.0-15.5); MEAN CORPUSCULAR HEMOGLOBIN 29.9 pg (27.0-33.0); MEAN CORPUSCULAR HGB CONC 33.2 g/dl (32.0-36.5); MEAN CORPUSCULAR VOLUME 90.2 fl (80.0-96.0); PLATELET COUNT, AUTOMATED 339 10^3/uL (150-450); RED BLOOD COUNT 5.11 10^6/uL (4.00-5.40); WHITE BLOOD COUNT 7.4 10^3/uL (4.0-10.0)
[2022-07-11] MEDS: HYDROMORPHONE HCL 0.5 MG/ 0.5 ML SYRINGE IV PRN ×2 (15:48→16:12)
[2022-07-11] MEDS: oxyCODONE 5MG TAB PO PRN ×2 (16:11→16:45)
[2022-07-11 17:21] VITALS: BP 122/62
== END | disposition home or self-care (01) ==
LOC: M SDC 10:57
PROVIDERS: ATTEND Obstetrics & Gynecology
DX: N93.9 Abnormal uterine and vaginal bleeding, unspecified (principal); N80.03 Adenomyosis of the uterus; R10.2 Pelvic and perineal pain; F17.210 Nicotine dependence, cigarettes, uncomplicated; Z88.1 Allergy status to other antibiotic agents; R51.9 Headache, unspecified
CPT/HCPCS: 36415; 58571; 85027; 86850; 86900; 86901; 88307; J0690; J1100; J1170; J1885; J2250; J2765; J3010; S2900

== ENCOUNTER → 2022-07-26 | Outpatient (REF) | payer OTHER ==
[~2022-07-26] MED LIST changes: -BUPIVACAINE HCL 0.25% 30ML VIAL As Ordered ONE; -DESFLURANE 240 ML INHALANT As Ordered ONE; -HYDROmorphone HCL 2MG/ML 1ML VIAL As Ordered ONE; -KETOROLAC 30 MG/ML 1ML VIAL IV SCH; -KETOROLAC 60MG 2ML VIAL As Ordered ONE; -LIDOCAINE 2% 100MG/5ML SDV (FOR ANES.) As Ordered ONE; -LR 1,000 ML IV SCH; -METOCLOPRAMIDE INJ 10MG/2ML VIAL As Ordered ONE; -METOCLOPRAMIDE INJ 10MG/2ML VIAL IV PRN; -MIDAZOLAM INJ 2MG/2ML VIAL As Ordered ONE; -ONDANSETRON 4MG 2ML VIAL IV PRN; -PERCOCET 5MG/325MG TAB PO PRN; -ROCURONIUM BROMIDE 50MG/5ML VIAL As Ordered ONE; -SUGAMMADEX SODIUM 500 MG/5 ML VIAL (BRIDION) As Ordered ONE; -ceFAZolin SOD 2 GM in IV 1 EA IV ONE; -ePHEDrine SULFATE 25 MG/5 ML(5MG/ML) SYRINGE As Ordered ONE; -fentaNYL 100 MCG/2 ML INJECTION IV PRN; -fentaNYL 250 MCG/5 ML INJECTION As Ordered ONE; -propofoL 200 MG/20 ML VIAL As Ordered ONE
== END ==
LOC: M LAB REF 17:11
PROVIDERS: ATTEND Nurse Practitioner Family
DX: R30.0 Dysuria (principal)

== ENCOUNTER 2022-08-17 20:37 | Emergency (ER) | payer OTHER ==
[~2022-08-17] VITALS: Ht 157.5 cm; Wt 63.7 kg
[2022-08-17] MEDS ORDERED: MORPHINE 4 MG/ML 1ML VIAL IV ONE (21:40)
[2022-08-17 22:02] LABS: BASO # 0.1 10^3/uL (0.0-0.2); BASO % 0.8 % (0.0-1.0); EOS # 0.2 10^3/uL (0.0-0.5); EOS % 3.1 % (0.0-3.0); HEMATOCRIT 42.4 % (36.0-47.0); HEMOGLOBIN 14.2 g/dl (12.0-15.5); LYMPH # 1.3 10^3/uL (1.5-5.0); MEAN CORPUSCULAR HEMOGLOBIN 30.2 pg (27.0-33.0); MEAN CORPUSCULAR HGB CONC 33.5 g/dl (32.0-36.5); MEAN CORPUSCULAR VOLUME 90.2 fl (80.0-96.0); MONO # 0.5 10^3/uL (0.0-0.8); MONO % 6.3 % (2.0-8.0); NEUTROPHILS # 5.4 10^3/uL (1.5-8.5); NEUTROPHILS % 72.5 % (36.0-66.0); PLATELET COUNT, AUTOMATED 275 10^3/uL (150-450); WHITE BLOOD COUNT 7.5 10^3/uL (4.0-10.0)
[2022-08-17 22:25] LABS: LIPASE 26 U/L (12-53)
[2022-08-17 22:27] LABS: ALBUMIN 4.1 G/DL (3.2-5.2); ALKALINE PHOSPHATASE 67 U/L (46-116); ALT/SGPT 12 U/L (7.0-40); AST/SGOT < 8 U/L (<34); BILIRUBIN,DIRECT 0.2 MG/DL (<0.4); BILIRUBIN,TOTAL 0.7 MG/DL (0.3-1.2); BLOOD UREA NITROGEN 10 MG/DL (9-23); CALCIUM LEVEL 10.2 MG/DL (8.5-10.1); CARBON DIOXIDE LEVEL 24 MMOL/L (20-31); CHLORIDE LEVEL 108 MMOL/L (98-107); CREATININE FOR GFR 0.78 MG/DL (0.55-1.30); GLOMERULAR FILTRATION RATE > 60.0 (>60); GLUCOSE, FASTING 81 MG/DL (60-100); POTASSIUM SERUM 3.7 MMOL/L (3.5-5.1); SODIUM LEVEL 139 MMOL/L (136-145); TOTAL PROTEIN 6.6 G/DL (5.7-8.2)
[2022-08-17] MEDS ORDERED: ONDANSETRON 4MG 2ML VIAL As Ordered ONE (22:48)
[2022-08-17] MEDS ORDERED: ONDANSETRON 4MG 2ML VIAL IV ONE (22:50)
[2022-08-17] MEDS ORDERED: NS 1,000 ML IV ONE (22:50)
[2022-08-17] MEDS ORDERED: ISOVUE-370 76% 100ML VIAL As Ordered ONE (22:51)
[2022-08-18] MEDS ORDERED: KETO10TAB PO (01:10)
[2022-08-18] MEDS ORDERED: FLOM0.4C39 PO (01:10)
[2022-08-18 01:30] VITALS: BP 118/65
== END 2022-08-18 01:39 | disposition home or self-care (01) ==
LOC: M ED 20:37
DX: K80.00 Calculus of gallbladder with acute cholecystitis without obstruction (principal); N20.1 Calculus of ureter; N83.202 Unspecified ovarian cyst, left side; N80.9 Endometriosis, unspecified; N28.1 Cyst of kidney, acquired; Z87.442 Personal history of urinary calculi; Z88.1 Allergy status to other antibiotic agents; Z90.710 Acquired absence of both cervix and uterus; Z79.899 Other long term (current) drug therapy
CPT/HCPCS: 74177; 80048; 80076; 81001; 83690; 85025; 87086; 93041; 96374; 99285; J2405; Q9967

== ENCOUNTER → 2023-06-26 | Outpatient (CLI) | payer MEDICAID | LOC: M RAD 11:22 | PROVIDERS: ATTEND Urology | DX: N20.0 Calculus of kidney (principal) ==

== ENCOUNTER → 2023-07-17 | Outpatient (REF) | payer OTHER | LOC: M LAB REF 17:04 | PROVIDERS: ATTEND Registered Nurse | DX: R30.0 Dysuria (principal) ==

== ENCOUNTER → 2024-07-16 | Outpatient (REF) | payer OTHER ==
[~2024-07-16] MED LIST changes: +ONDA-282 PO; -ONDA4TAB6 PO
== END ==
LOC: M LAB REF 17:07
PROVIDERS: ATTEND Registered Nurse
DX: Z00.00 Encounter for general adult medical examination without abnormal findings (principal)

== ENCOUNTER → 2025-02-23 | Outpatient (REF) | payer OTHER ==
[~2025-02-23] MED LIST changes: -FLOM0.4C39 PO; +TAMS-18 PO
== END ==
LOC: M PLALAB 14:54
PROVIDERS: ATTEND Physician Assistant
DX: R30.0 Dysuria (principal)